=== PATIENT | male | born 1960 | race Caucasian/White ===

== ENCOUNTER 2016-11-30 09:59 | Emergency (ER) | payer SELFPAY ==
[~2016-11-30] VITALS: Ht 188 cm; Wt 100.0 kg
[2016-11-30 10:01] VITALS: BP 172/102; PULSE 102; RESP 20; TEMP 98; O2SAT 98
[2016-11-30] MEDS ORDERED: HYDR1CRE TOPICAL (10:48)
[2016-11-30] MEDS ORDERED: CEPH-459 PO (10:48)
--- NOTE | 2016-11-30 10:48 | PD ---
HPI Chief Complaint: Bite or Sting Time Seen by Provider: 10:26 Travel History International Travel<30 days: No Contact w/Intl Traveler<30days: No Traveled to known affect area: No History of Present Illness HPI 55-year-old male here for evaluation of rash to bilateral ankles 1 week. Patient reports the rash is pruritic and painful. The area is becoming increasingly more red and started to lose. Patient reports he is using hydrogen peroxide daily on the area and taking Benadryl for the itching. Mild symptomatic relief with current treatment plan. He denies fever or chills. Symptoms severity is mild. No aggravating or alleviating factors. PFSH Past Medical History Medical History: Denies Significant Hx Tetanus Vaccination: > 5 Years Past Surgical History Surgical History: No Previous Surgery Social History Alcohol Use: Yes Tobacco Use: Yes Substance Use: No Allergies-Medications (Allergen,Severity, Reaction): Coded Allergies: No Known Allergies (Verified Allergy, Unknown, 11/30/16) Reported Meds & Prescriptions Reported Meds & Active Scripts Active No Active Prescriptions or Reported Medications Review of Systems Except as stated in HPI: all other systems reviewed are Neg General / Constitutional: No: Fever Physical Exam Narrative GENERAL: Alert, well-appearing male in no acute distress. SKIN: Focused skin assessment warm/dry. Confluent, erythematous, vesicular rash to bilateral lower extremities medial aspect superior to the ankle. The rash is in the location of the boots the patient wears. HEAD: Atraumatic. Normocephalic. EYES: Pupils equal and round. No scleral icterus. No injection or drainage. ENT: No nasal bleeding or discharge. Mucous membranes pink and moist. NECK: Trachea midline. No JVD. CARDIOVASCULAR: Regular rate and rhythm. No murmur appreciated. RESPIRATORY: No accessory muscle use. Clear to auscultation. Breath sounds equal bilaterally. GASTROINTESTINAL: Abdomen soft, non-tender, nondistended. Hepatic and splenic margins not palpable. MUSCULOSKELETAL: No obvious deformities. No clubbing. No cyanosis. No edema. Data Data Last Documented VS Vital Signs Date Time Temp Pulse Resp B/P (MAP) Pulse Ox O2 Delivery O2 Flow Rate FiO2 11/30/16 10:01 98.0 102 20 172/102 (125) 98 Room Air MDM Medical Decision Making Medical Screen Exam Complete: Yes Emergency Medical Condition: Yes Differential Diagnosis Contact dermatitis versus skin infection versus unspecified rash Narrative Course 55-year-old male with chief complaint of pruritic rash to bilateral lower extremities times one week. The rash is located to the medial aspects of the lower extremities and location of the tall boots the patient wears regularly. On exam patient has a erythematous vesicular rash consistent with irritant contact dermatitis. There is a small area of excoriated skin which appears to be mildly infected. Patient be treated with steroid cream antibiotics and instructed to take OTC Benadryl. Diagnosis Primary Impression: Contact dermatitis Qualified Codes: L25.9 - Unspecified contact dermatitis, unspecified cause Additional Impression: Wound infection Referrals: Primary Care Physician Additional Instructions: Take the antibiotics as prescribed. Use a steroid cream as directed. Do not where the socks and boots as we discussed. Take [id number] Benadryl as needed for itching. Scripts Cephalexin (Keflex) 250 Mg Cap 250 MG PO Q6H for Infection for 7 Days, #28 CAP 0 Refills Prov: Ramona Bradley 11/30/16 Hydrocortisone Topical (Hydrocortisone Topical) 1% Cream 1 APPLIC TOPICAL BID for Rash/Inflammation for 7 Days, GM 0 Refills Prov: Ramona Bradley 11/30/16 Disposition: 01 DISCHARGE HOME Condition: Stable Ramona Bradley Nov 30, 2016 10:48
== END 2016-11-30 11:06 | disposition home or self-care (01) ==
LOC: NEPK 09:59
DX: L25.9 Unspecified contact dermatitis, unspecified cause (principal); L08.9 Local infection of the skin and subcutaneous tissue, unspecified; Z72.0 Tobacco use
CPT/HCPCS: 99284

== ENCOUNTER 2017-04-09 07:30 | Emergency (ER) | payer SELFPAY ==
[~2017-04-09] VITALS: Ht 188 cm; Wt 100.0 kg
[~2017-04-09 07:30] MED LIST: CEPH-459 PO; HYDR1CRE TOPICAL
[2017-04-09 07:33] VITALS: BP 193/103; PULSE 91; RESP 18; TEMP 97.5; O2SAT 100
[2017-04-09] MEDS ORDERED: DIFL150T PO (08:14)
[2017-04-09] MEDS ORDERED: PRED20 PO (08:14)
[2017-04-09] MEDS ORDERED: LOTR15T TOPICAL (08:14)
--- NOTE | 2017-04-09 08:20 | PD ---
HPI Chief Complaint: Skin Problem Time Seen by Provider: 07:53 Travel History International Travel<30 days: No Contact w/Intl Traveler<30days: No Traveled to known affect area: No History of Present Illness HPI 56-year-old male presents emergency department with chronic recurrent pruritic rash to both lower extremities, crotch, under arms, and trunk. He states he was treated previously with some antibiotics and steroids with some improvement but the itch never went away. Patient's been using some over-the- counter antifungals with some improvement. But symptoms continue to be bothersome. He denies open sores or fever, chills, or other symptoms. Patient has no known drug allergies. PFSH Social History Alcohol Use: Yes Tobacco Use: Yes Substance Use: No Allergies-Medications (Allergen,Severity, Reaction): Coded Allergies: No Known Allergies (Verified , 04/09/17) Reported Meds & Prescriptions Reported Meds & Active Scripts Active Diflucan (Fluconazole) 150 Mg Tab 150 Mg PO WEEKLY Prednisone 20 Mg Tab 20 Mg PO BID 7 Days Lotrisone Topical (Betamethasone/Clotrimazole) 1-0.05% Cream 1 Applic TOPICAL BID Keflex (Cephalexin) 250 Mg Cap 250 Mg PO Q6H 7 Days Hydrocortisone Topical 1% Cream 1 Applic TOPICAL BID 7 Days Review of Systems Except as stated in HPI: all other systems reviewed are Neg General / Constitutional: No: Fever Eyes: No: Visual changes HENT: No: Headaches Cardiovascular: No: Chest Pain or Discomfort Respiratory: No: Shortness of Breath Gastrointestinal: No: Abdominal Pain Genitourinary: No: Dysuria Musculoskeletal: No: Pain Skin: Positive Rash, Positive Itching Neurologic: No: Weakness Psychiatric: No: Depression Endocrine: No: Polydipsia Hematologic/Lymphatic: No: Easy Bruising Physical Exam Narrative GENERAL: Patient appears in mild to moderate distress SKIN: Warm and dry. Normal color. Normal turgor. Patient has lesions in the moist folds of the body consistent with tinea corporus. I believe this is chronic. HEAD: Atraumatic. Normocephalic. EYES: Pupils equal and round. No scleral icterus. No injection or drainage. ENT: No nasal bleeding or discharge. Mucous membranes pink and moist. NECK: Trachea midline. No JVD. CARDIOVASCULAR: Regular rate and rhythm. RESPIRATORY: No accessory muscle use. Clear to auscultation. Breath sounds equal bilaterally. GASTROINTESTINAL: Abdomen soft, non-tender, nondistended. Hepatic and splenic margins not palpable. MUSCULOSKELETAL: Extremities without clubbing, cyanosis, or edema. No obvious deformities. NEUROLOGICAL: Awake and alert. No obvious cranial nerve deficits. Motor grossly within normal limits. Five out of 5 muscle strength in the arms and legs. Normal speech. PSYCHIATRIC: Appropriate mood and affect; insight and judgment normal. Data Data Last Documented VS Vital Signs Date Time Temp Pulse Resp B/P (MAP) Pulse Ox O2 Delivery O2 Flow Rate FiO2 04/09/17 08:07 04/09/17 07:33 97.5 91 18 100 MDM Medical Decision Making Medical Screen Exam Complete: Yes Emergency Medical Condition: Yes Differential Diagnosis Recurrent tinea. Eczema. Atopic dermatitis. Narrative Course Patient will be treated with a short course of prednisone 20 mg twice daily 7 days. Patient also given Diflucan 150 mg weekly for 4 weeks. Patient is also given Lotrisone ointment to be applied to the affected areas twice daily 45 g. Recommend patient follow-up with [facility] for his primary care. Diagnosis Primary Impression: Tinea corporis Referrals: [facility] Patient Instructions: General Instructions, Nick Itch (ED) Additional Instructions: Patient will be treated with a short course of prednisone 20 mg twice daily 7 days. Patient also given Diflucan 150 mg weekly for 4 weeks. Patient is also given Lotrisone ointment to be applied to the affected areas twice daily 45 g. Recommend patient follow-up with [facility] for his primary care. Scripts Fluconazole (Diflucan) 150 Mg Tab 150 MG PO WEEKLY for Infection, #4 TAB 0 Refills Prov: Dick Heller MD 04/09/17 Prednisone (Prednisone) 20 Mg Tab 20 MG PO BID for 7 Days, #14 TAB 0 Refills Prov: Dick Heller MD 04/09/17 Betamethasone-Clotrimazole Topical (Lotrisone Topical) 1-0.05% Cream 1 APPLIC TOPICAL BID for Fungal infection, #45 GM 0 Refills Prov: Dick Heller MD 04/09/17 Disposition: 01 DISCHARGE HOME Condition: Stable Zenon Palacio Apr 09, 2017 08:20
== END 2017-04-09 08:30 | disposition home or self-care (01) ==
LOC: NEPD 07:30
DX: B35.4 Tinea corporis (principal); Z72.0 Tobacco use
CPT/HCPCS: 99283